=== PATIENT | female | born 1995 | race Two or more races ===

== ENCOUNTER 2016-11-22 09:38 | Emergency (ER) | payer MEDICAID ==
[~2016-11-22] VITALS: Ht 149.9 cm; Wt 66.2 kg
[~2016-11-22 09:38] MED LIST: FLUO20CA36 PO
[2016-11-22 09:47] VITALS: BP 125/74
== END 2016-11-22 10:47 | disposition home or self-care (01) ==
LOC: ER 09:39
DX: J11.1 Influenza due to unidentified influenza virus with other respiratory manifestations (principal); J06.9 Acute upper respiratory infection, unspecified
CPT/HCPCS: 99281; A4606; Z7610; Z7502

== ENCOUNTER 2017-03-30 17:03 | Emergency (ER) | payer BC ==
[~2017-03-30] VITALS: Ht 149.9 cm; Wt 68.0 kg
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
--- NOTE | 2017-03-30 17:38 | NUR ---
annabelle carranza at bedside for eval.
[2017-03-30] MEDS ORDERED: HYDROCODONE/APAP 5/325MG 1 EACH TABLET ONE (18:21)
[2017-03-30] MEDS ORDERED: HYDROCODONE/APAP 5/325MG 1 EACH TABLET PO ONE (18:30)
--- NOTE | 2017-03-30 19:24 | NUR ---
splint applied. pt is d/c home in stable condition.
[2017-03-30 19:25] VITALS: BP 132/87
== END 2017-03-30 19:26 | disposition home or self-care (01) ==
LOC: ER 17:06
DX: S52.501A Unspecified fracture of the lower end of right radius, initial encounter for closed fracture (principal); V43.52XA Car driver injured in collision with other type car in traffic accident, initial encounter; Y93.89 Activity, other specified; Y92.488 Other paved roadways as the place of occurrence of the external cause; Y99.8 Other external cause status
CPT/HCPCS: 73110; 73130-TC; 84703-TC; A4606; Z7610

== ENCOUNTER 2017-06-21 16:15 | Emergency (ER) | payer BC ==
[~2017-06-21] VITALS: Ht 149.9 cm; Wt 66.7 kg
[2017-06-21 16:25] VITALS: BP 127/62
== END 2017-06-21 16:46 | disposition home or self-care (01) ==
LOC: ER 16:16
DX: S60.464A Insect bite (nonvenomous) of right ring finger, initial encounter (principal); W57.XXXA Bitten or stung by nonvenomous insect and other nonvenomous arthropods, initial encounter; Y93.89 Activity, other specified; Y92.89 Other specified places as the place of occurrence of the external cause; Y99.9 Unspecified external cause status
CPT/HCPCS: 99282; A4606; Z7610

== ENCOUNTER 2017-11-17 10:44 | Emergency (ER) | payer BC ==
[~2017-11-17] VITALS: Ht 149.9 cm; Wt 68.5 kg
[2017-11-17 10:48] VITALS: BP 113/1
== END 2017-11-17 11:50 | disposition home or self-care (01) ==
LOC: ER 10:45
DX: T62.91XA Toxic effect of unspecified noxious substance eaten as food, accidental (unintentional), initial encounter (principal); R11.2 Nausea with vomiting, unspecified; Y92.89 Other specified places as the place of occurrence of the external cause
CPT/HCPCS: 99283; A4606; Z7610

== ENCOUNTER 2018-01-03 14:57 | Emergency (ER) | payer BC ==
[~2018-01-03] VITALS: Ht 149.9 cm; Wt 65.8 kg
[2018-01-03 14:57] VITALS: BP 119/72
[2018-01-03 16:54] LABS: APPEARANCE,URINE Clear (CLEAR); BILIRUBIN,URINE Negative (NEGATIVE); BLOOD, URINE Large Ery/uL (NEGATIVE); COLOR,URINE Yellow (YELLOW); KETONES,URINE 40 (NEGATIVE); LEUKOCYTE ESTERASE ,URINE Negative (NEGATIVE); NITRITE, URINE Negative (NEGATIVE); PH,URINE 6.5 (5.0-8.0); PROTEIN,URINE Negative (NEGATIVE); UGLUCOSE Negative (NEGATIVE); UROBILINOGEN,URINE 0.2 EU/dL (0.2)
[2018-01-03] MEDS ORDERED: KETOROLAC TROMETHAMINE INJ 30 MG/ML VIAL ONE (17:04)
[2018-01-03] MEDS ORDERED: ACETAMINOPHEN ES 500 MG TABLET ONE (17:04)
[2018-01-03] MEDS: KETOROLAC TROMETHAMINE INJ 60 MG/2 ML VIAL IM ONE (17:10)
[2018-01-03] MEDS: ACETAMINOPHEN 325 MG TABLET PO ONE (17:10)
[2018-01-03 17:23] LABS: BACTERIA,URINE Moderate /HPF (None Seen); WBC,URINE 0-2 /HPF (0-3)
[2018-01-03 17:24] LABS: SQUAMOUS EPITHELIAL CELL,UR Few /HPF (None Seen)
== END 2018-01-03 17:43 | disposition home or self-care (01) ==
LOC: ER 14:58
DX: R51 Headache (principal); R55 Syncope and collapse; R10.9 Unspecified abdominal pain
CPT/HCPCS: 81000-TC; 84703-TC; 87086-TC; A4606; J1885; Z7610

== ENCOUNTER 2019-08-08 04:22 | Emergency (ER) | payer BC, MEDICAID ==
[~2019-08-08] VITALS: Ht 149.9 cm; Wt 80.3 kg
[2019-08-08 04:54] VITALS: BP 120/69
--- NOTE | 2019-08-08 05:19 | NUR ---
PT LEFT BEFORE THE DR COULD EVALUATE HER. PT REALIZED THAT SHE HAD AN EXAM THIS MORNING AND COULD NOT WAIT. PT WILL RETURN IF HER EYE WORSENS.
== END 2019-08-08 05:20 | disposition home or self-care (01) ==
LOC: ER 04:22
DX: H57.12 Ocular pain, left eye (principal); Z53.21 Procedure and treatment not carried out due to patient leaving prior to being seen by health care provider

== ENCOUNTER 2020-03-06 23:21 | Emergency (ER) | payer BC, MEDICAID ==
[~2020-03-06] VITALS: Ht 149.9 cm; Wt 79.4 kg
[2020-03-06 23:38] VITALS: BP 132/71
[2020-03-06] MEDS ORDERED: LORAZEPAM 0.5 MG TABLET ONE (23:54)
--- NOTE | 2020-03-06 23:56 | NUR ---
PATIENT STATES THAT SHE HAD A PANIC ATTACK AT HOME AND NOT UNDERSTANDING WHAT PROMPT THE PANIC ATTACK. AAOX4. NO SOB. BREATHING EVENLY AND UNLABORED ON ROOM AIR. CONNECTED TO MONITOR
[2020-03-07] MEDS ORDERED: LORAZEPAM 0.5 MG TABLET PO ONE
--- NOTE | 2020-03-07 00:04 | NUR ---
Patient discharged to home in stable condition. Written and verbal after care instructions given. Patient verbalizes understanding of instruction.
--- NOTE | 2020-03-07 00:06 | NUR ---
PATIENT IS BEING TAKEN HOME DRIVEN BY FRIEND.
== END 2020-03-07 00:06 | disposition home or self-care (01) ==
LOC: ER 23:21
DX: F41.9 Anxiety disorder, unspecified (principal); G43.909 Migraine, unspecified, not intractable, without status migrainosus; Z79.899 Other long term (current) drug therapy